=== PATIENT | female | born 1990 | race Caucasian/White ===

== ENCOUNTER 2018-11-22 20:43 | Inpatient (IN) | payer OTHER ==
[~2018-11-22 20:43] MED LIST: DINOPROSTONE 10 MG VAGINAL SUPPOSITORY VG ONE
[2018-11-22] MEDS ORDERED: DEXTROSE 5%-LACTATED RINGERS 1,000 ML IV SCH (20:45)
--- NOTE | 2018-11-22 22:50 | PN ---
Progress Note, Labor Vaginal Exam #1 Labor Exam Date: 11/22/18 Labor Exam Time: 22:25 Heart Rate (range): cat 1. Dilatation: 1-2 cm Effacement (%): 50 Amniotic Membrane Status: Intact Presentation: Vertex/Position Station: -1 (Primip, post term; for induction. All fully explained.) Remarks: Post term primip forf induction. EFW 8+ lbs. Some ctx; mild. All discussd fully. Cervidil placed.
[2018-11-22 23:59] VITALS: BMI 35.6
[2018-11-23 00:50] LABS: BASO % 0.8 % (0-2.0); HEMOGLOBIN 12.4 GM/dL (10.7-15.3)
[2018-11-23 00:53] LABS: EOS % 0.6 % (0-4.5); HEMATOCRIT 36.4 % (32.4-45.2); LYMPH % 20.8 % (8-40); MCH 27.3 pg (25.7-33.7); MEAN CELL VOLUME 80.2 fl (80-96); MEAN PLT VOLUME 12.2 fl (7.5-11.1); NEUT % 70.8 % (42.8-82.8); PLATELET COUNT 142 K/MM3 (134-434); RBC 4.54 M/mm3 (3.60-5.2); RDW 14.8 % (11.6-15.6); WHITE BLOOD COUNT 9.6 K/mm3 (4.0-10.0)
[2018-11-23 01:06] LABS: INR 0.92 (0.83-1.09); PROTHROMBIN TIME (PATIENT) 10.8 SEC (9.7-13.0)
[2018-11-23 01:09] LABS: ACTIVATED PTT 28.2 SECONDS (25.2-36.5)
[2018-11-23 01:13] LABS: BLOOD UREA NITROGEN 11.7 mg/dL (7-18); CALCIUM 8.6 mg/dL (8.5-10.1); CREATININE 0.8 mg/dL (0.55-1.3); POTASSIUM 3.9 mmol/L (3.5-5.1)
[2018-11-23] MEDS ORDERED: OXYTOCIN 30 UNITS in 0.9% NS 30 UNIT/500 ML INFUS.BAG IVPB ONE (06:47)
--- NOTE | 2018-11-23 07:03 | PN ---
Progress Note, Labor Vaginal Exam #2 Labor Exam Date: 11/23/18 Labor Exam Time: 06:35 Heart Rate (range): cat 1. Dilatation: 2-3 Effacement (%): 70 Amniotic Membrane Status: Intact Presentation: Vertex/Position Station: -2 (Pitocin started at 04:45 hrs. Comfortable, no ctx yet) Remarks: Pitocin started at 04:45 hrs. No ctx yet; comfortable. Making slow progress. Continue same Rx. AROM with next exam.
--- NOTE | 2018-11-23 07:14 | PN ---
Progress Note, Labor Vaginal Exam #2 Labor Exam Date: 11/23/18 Labor Exam Time: 07:10 Heart Rate (range): cat 1. Dilatation: 2-3 cm Effacement (%): 50 Amniotic Membrane Status: Intact Presentation: Vertex/Position Station: -2 Remarks: Terri. Uncomfortabele; coping well. D/W patient and family. AROM - clean. Allow labor to continue. Epidural soon; d/w patient. (DISREGARD PRIOR NOTE: ERROR. WRONG PATIENT ENTERED.)
[2018-11-23] MEDS ORDERED: FENTANYL/BUPIVACAINE/NS/PF - PCEA - 50 ML DISP.SYRIN EP ONE ×2 (09:32→14:51)
[2018-11-23] MEDS ORDERED: ELECTROLYTE-148 SOLN 1,000 ML IV SCH (09:45)
[2018-11-23] MEDS ORDERED: NALOXONE HCL 0.4 MG/ML VIAL IVPUSH PRN (11:20)
[2018-11-23] MEDS ORDERED: FENTANYL/BUPIVACAINE/NS/PF - PCEA - 50 ML DISP.SYRIN EP SCH ×2 (11:30)
--- NOTE | 2018-11-23 11:38 | HP ---
Past Medical History - Admission Chief Complaint: here for IOL History of Present Illness: 28 y/o P0 female with SIUP at 41 weeks (EDC 11/15/18 by [facility] ultrasound) presents for labor induction last night 11/22. Pt had cervidil placed last night which was removed approx 6am this morning. Since that time, pt was AROM'ed for clear fluid and is seabs without any additional intervention. Tolerating contractions at this time, but desires epidural. History Source: Patient, Medical Record - Past Medical History Cardiovascular: No: HTN Pulmonary: No: COPD Gastrointestinal: Yes: Other (gallstones, 2 episodes of gallstone pancreatitis this , most recenly at 37 weeks) Hepatobiliary: No: Other Renal/: No: UTI Reproductive: No: Ectopic , PID, Polycystic Ovary Syndrome ...: 1 ...Para: 0 ...Term: 0 ...: 0 ...Spon : 0 ...Induced : 0 ...Multiple Gestation: 0 ... Weeks Gestation by Dates: 22.5 ...EDC by Dates: 11/15/18 ...EDC by Sono: 11/15/18 Heme/Onc: No: Anemia Psych: No: Anxiety, Bipolar, Depression - Past Surgical History Past Surgical History: Yes: None Hx Myomectomy: No Hx Transabdominal Cerclage: No - Smoking History Smoking history: Never smoked - Alcohol/Substance Use Hx Alcohol Use: No - Social History History of Recent Travel: No Home Medications - Allergies Allergies/Adverse Reactions: Allergies Allergy/AdvReac Type Severity Reaction Status Date / Time Penicillins Allergy Verified 11/23/18 03:03 - Home Medications Home Medications: Ambulatory Orders Famotidine [Pepcid -] 20 mg PO BID 11/23/18 Vitamins (Sjr) - 1 tab PO DAILY 11/23/18 Review of Systems - Review of Systems Constitutional: reports: No Symptoms Eyes: reports: No Symptoms HENT: reports: No Symptoms Neck: reports: No Symptoms Cardiovascular: reports: No Symptoms Respiratory: reports: No Symptoms Gastrointestinal: reports: No Symptoms Genitourinary: reports: Other (contractions, leaking clear fluid) Integumentary: reports: No Symptoms Neurological: reports: No Symptoms Endocrine: reports: No Symptoms Hematology/Lymphatic: reports: No Symptoms Psychiatric: reports: No Symptoms Physical Exam - Maternity Vital Signs: Vital Signs Temperature 98.3 F 11/23/18 11:00 Pulse Rate 66 11/23/18 09:00 Respiratory Rate 20 11/23/18 09:00 Blood Pressure 128/76 11/23/18 09:00 O2 Sat by Pulse Oximetry (%) Constitutional: Yes: Well Nourished, Calm, Mild Distress (with contractions) Cardiovascular: Yes: Regular Rate and Rhythm - Abdominal Exam/OB Number of Fetuses: Single Presentation: Vertex Contractions: Yes Regularity: Regular Intensity: Mod/Strong Category: I Accelerations: Uniform Decelerations: None - Vaginal Exam/OB Vaginal Bleediing: No Dilatation (cm): 4.5 Effacement (%): 80 Amniotic Membrane Status: Ruptured Presentation: Vertex/Position Station: -1 - Physical Exam Psychiatric: Yes: Alert, Oriented - Labs Lab Results: CBC, BMP 11/23/18 00:30 11/23/18 00:30 Hemorrhage Risk Assessment - Risk Factors Medium Risk Factors: Yes: None High Risk Factors: Yes: None Risk Score: 1 Risk Level: Medium Risk Problem List - Problems (1) Post-dates Code(s): O48.0 - POST-TERM Assessment/Plan 28 y/o with SIUP at 41 weeks, for IOL s/p cervidil and AROM now in active labor to get epidural GBS negative continue active management
--- NOTE | 2018-11-23 14:22 | PN ---
Ante-Partal Exam - Subjective Subjective: Came to evaluate patient for early and variable decelerations. Vital Signs: Vital Signs Temperature 98.3 F 11/23/18 11:00 Pulse Rate 59 L 11/23/18 12:05 Respiratory Rate 20 11/23/18 12:05 Blood Pressure 109/73 11/23/18 12:05 O2 Sat by Pulse Oximetry (%) 100 11/23/18 12:05 Bleeding: Yes Bleeding Description: Mild Headache: No Visual changes: No Right upper quadrant pain: No - Contractions Contractions: Yes Regularity: Regular - Exam during Labor Heart Rate: 130 Variability: Moderate Category: I Monitor Accelerations: Present Monitor Decelerations: Early (and variable declerations) Exam: Vaginal Dilatation (cm): 6.5 Effacement (%): 100 Amniotic Membrane Status: Ruptured Nitrazine Test: Positive Presentation: Vertex Station: 0 - Assessment/Plan Assessment/Plan: 28 y/o with SIUP at 41 weeks, IOL for late term FHTS category 2, continue observation and resuscitative measures as needed if no progress and continues to have variables/decels may need to expedite delivery
--- NOTE | 2018-11-23 15:07 | PN ---
Ante-Partal Exam - Subjective Subjective: pt comfortable with epidural having recurrent variable decelerations with each contraction for the past 60 minutes Vital Signs: Vital Signs Temperature 97.9 F 11/23/18 14:00 Pulse Rate 59 L 11/23/18 12:05 Respiratory Rate 20 11/23/18 12:05 Blood Pressure 109/73 11/23/18 12:05 O2 Sat by Pulse Oximetry (%) 100 11/23/18 12:05 Bleeding: Yes Bleeding Description: Mild Headache: No Visual changes: No Right upper quadrant pain: No - Contractions Contractions: Yes Regularity: Irregular Intensity: Moderate - Exam during Labor Heart Rate: 135 Variability: Moderate Category: II Monitor Accelerations: Present (with scalp stimulation only) Monitor Decelerations: Variable Dilatation (cm): 6.5 Effacement (%): 90 Amniotic Membrane Status: Ruptured - Assessment/Plan Assessment/Plan: Discussed plan of care with patient. Recurrent variable decelerations and no progression with cervical dilation. Category 2 After observation and reassessment, continued category 2 tracing with recurrent decelerations and no cervical dilation progression, will plan for delivery R/b/A discussed with pt and family informed consent obtained anesthesia/nursery aware NPO/SCDs
[2018-11-23] MEDS ORDERED: CLINDAMYCIN 600MG PREMIX IVPB 600 MG/50 ML BAG IVPB ONE (15:12)
[2018-11-23] MEDS ORDERED: CITRIC ACID/SODIUM CITRATE 30 ML UNIT-DOSE CUP PO ONE (15:22)
[2018-11-23] MEDS ORDERED: GENTAMICIN 80 MG PREMIXED IVPB 80 MG/100 ML BAG IVPB ONE (15:22)
[2018-11-23] MEDS ORDERED: OXYTOCIN 20 UNITS in 0.9% NS 20 UNIT/1,000 ML INFUS.BAG IV ONE ×2 (15:48→17:46)
[2018-11-23] MEDS ORDERED: LIDO 2%/EPI 1:200000 PRESRVFRE (20 ML SDVIAL) ONE (15:49)
[2018-11-23] MEDS ORDERED: SODIUM BICARBONATE 8.4% - 50 ML ONE (15:51)
[2018-11-23] MEDS ORDERED: ceFAZolin SODIUM 1 GM VIAL ONE (15:58)
[2018-11-23] MEDS ORDERED: BUPIVACAINE 0.75% IN DEXTROSE/PF 2ML AMPULE NR ONE (16:02)
[2018-11-23] MEDS ORDERED: morphine SULFATE/PF 0.5 MG/ML (2cc Syringe - QUVA) ONE ×3 (16:06)
[2018-11-23] MEDS ORDERED: PHENYLEPHRINE HCL 10 MG/1 ML SINGLE DOSE VIAL ONE (16:17)
[2018-11-23] MEDS ORDERED: KETOROLAC TROMETHAMINE 30 MG/1 ML VIAL ONE (16:28)
[2018-11-23] MEDS ORDERED: OXYTOCIN 10 UNITS/ML VIAL ONE (16:36)
[2018-11-23] MEDS ORDERED: ONDANSETRON 4 MG/2 ML VIAL IVPUSH PRN (16:48)
[2018-11-23] MEDS ORDERED: DINOPROSTONE 10 MG VAGINAL SUPPOSITORY VG ONE (22:40)
--- NOTE | 2018-11-24 05:48 | OP ---
Operative Note - Note: Operative Date: 11/23/18 Pre-Operative Diagnosis: recurrent variable decelerations, remote from delivery Operation: primary LTCS Findings: normal b/l tubes and ovaries Post-Operative Diagnosis: Same as Pre-op Surgeon: Anita Snow Title Clerk Automobile: Panfilo Wade Anesthesiologist/APPRENTICE/LINEMAN: Stu Martel Anesthesia: Epidural Specimens Removed: placenta Estimated Blood Loss (mls): 600 Operative Report Dictated: Yes
--- NOTE | 2018-11-24 05:49 | PN ---
Post Progress Note - Subjective Subjective: Pt seen/evaluated, doing well. Complains of incisional pain, no other issues. Barboza catheter with good urine output. Tolerating clears. Type of Delivery: Primary C/S Vital Signs: Vital Signs Temperature 98.4 F 11/24/18 01:50 Pulse Rate 57 L 11/24/18 01:50 Respiratory Rate 18 11/24/18 05:00 Blood Pressure 111/65 11/24/18 01:50 O2 Sat by Pulse Oximetry (%) 100 11/23/18 15:35 Uterus: Yes: Fundus Firm Incision: Yes: Dressing dry and intact Abdomen/GI: Yes: Abdomen soft, Tolerating PO Lochia: Yes: Rubra Lochia, amount: Small Extremities: Yes: Calves non-tender, Edema (trace nonpitting LE edema b/l) Perineum: Yes: Intact Activity: Ambulating - Labs Labs: CBC WBC 9.6 K/mm3 (4.0-10.0) 11/23/18 00:30 RBC 4.54 M/mm3 (3.60-5.2) 11/23/18 00:30 Hgb 12.4 GM/dL (10.7-15.3) 11/23/18 00:30 Hct 36.4 % (32.4-45.2) 11/23/18 00:30 MCV 80.2 fl (80-96) 11/23/18 00:30 MCH 27.3 pg (25.7-33.7) 11/23/18 00:30 MCHC 34.0 g/dl (32.0-36.0) 11/23/18 00:30 RDW 14.8 % (11.6-15.6) 11/23/18 00:30 Plt Count 142 K/MM3 (134-434) 11/23/18 00:30 MPV 12.2 fl (7.5-11.1) H 11/23/18 00:30 Absolute Neuts (auto) 6.8 K/mm3 (1.5-8.0) 11/23/18 00:30 Neutrophils % 70.8 % (42.8-82.8) 11/23/18 00:30 Lymphocytes % 20.8 % (8-40) 11/23/18 00:30 Monocytes % 7.0 % (3.8-10.2) 11/23/18 00:30 Eosinophils % 0.6 % (0-4.5) 11/23/18 00:30 Basophils % 0.8 % (0-2.0) 11/23/18 00:30 Nucleated RBC % 0 % (0-0) 11/23/18 00:30 Problem List - Problems (1) Post-dates Code(s): O48.0 - POST-TERM (2) delivery delivered Code(s): O82 - ENCOUNTER FOR DELIVERY WITHOUT INDICATION Assessment/Plan 28 y/o POD#1 s/p primary LTCS for non reassuring heart rate AFVSS CBC pending advance diet as tolerated d/c gissel mckenzie a.m. routine post op care
[2018-11-24] MEDS: IBUPROFEN 600 MG TABLET (FP) PO PRN ×4 (08:15→20:56)
[2018-11-24] MEDS: ACETAMINOPHEN 325 MG TABLET (FP) PO PRN ×4 (08:16→20:55)
[2018-11-24] MEDS ORDERED: IBUPROFEN 800 MG/8 ML IJ IVPB PRN (08:21)
[2018-11-24] MEDS: ENOXAPARIN NA (PORCINE) 40 MG/0.4 ML DISP.SYRIN SQ SCH (10:00)
[2018-11-24] MEDS: PRENATAL VITAMINS W/ FOLIC ACID TABLET (FP) PO SCH (10:00)
[2018-11-24] MEDS ORDERED: DIPHTH,PERTUSS(ACELL),TET 0.5 ML DISP.SYRIN IM ONE (10:00)
--- NOTE | 2018-11-24 10:44 | PN ---
Progress Note (short form) - Note Progress Note: Post op day#1.S/p C Section under epidural anesthesia with duramorph uneventful.Patient stable and c/o little pain for which she is on medication.No any anesthesia related problem.Patient Dc from the anesthesia care.
[2018-11-24 11:16] LABS: HEMATOCRIT 32.8 % (32.4-45.2); MCH 27.1 pg (25.7-33.7); MCHC 33.4 g/dl (32.0-36.0); MEAN PLT VOLUME 11.5 fl (7.5-11.1); PLATELET COUNT 91 K/MM3 (134-434); RBC 4.05 M/mm3 (3.60-5.2); RDW 14.8 % (11.6-15.6); WHITE BLOOD COUNT 9.1 K/mm3 (4.0-10.0)
[2018-11-24] MEDS: oxyCODONE HCL 5 MG TABLET PO PRN (23:12)
--- NOTE | 2018-11-25 07:23 | PN ---
Post Progress Note - Subjective Subjective: 28 y0 Para 1 status post delivery, seen and evaluated. Doing well. Post Day: 2 Type of Delivery: Primary C/S Vital Signs: Vital Signs Temperature 98.3 F 11/24/18 22:00 Pulse Rate 70 11/24/18 22:00 Respiratory Rate 18 11/24/18 22:00 Blood Pressure 120/76 11/24/18 22:00 O2 Sat by Pulse Oximetry (%) 100 11/23/18 15:35 Breast Exam: Yes: Soft Uterus: Yes: Fundus Firm Incision: Yes: Dressing dry and intact Abdomen/GI: Yes: Abdomen soft, Tolerating PO Lochia: Yes: Rubra Lochia, amount: Small Extremities: Yes: Calves non-tender Perineum: Yes: Intact Activity: Ambulating - Labs Labs: CBC WBC 9.1 K/mm3 (4.0-10.0) 11/24/18 10:45 RBC 4.05 M/mm3 (3.60-5.2) 11/24/18 10:45 Hgb 11.0 GM/dL (10.7-15.3) 11/24/18 10:45 Hct 32.8 % (32.4-45.2) 11/24/18 10:45 MCV 81.0 fl (80-96) 11/24/18 10:45 MCH 27.1 pg (25.7-33.7) 11/24/18 10:45 MCHC 33.4 g/dl (32.0-36.0) 11/24/18 10:45 RDW 14.8 % (11.6-15.6) 11/24/18 10:45 Plt Count 91 K/MM3 (134-434) L D 11/24/18 10:45 MPV 11.5 fl (7.5-11.1) H 11/24/18 10:45 Absolute Neuts (auto) 6.8 K/mm3 (1.5-8.0) 11/23/18 00:30 Neutrophils % 70.8 % (42.8-82.8) 11/23/18 00:30 Lymphocytes % 20.8 % (8-40) 11/23/18 00:30 Monocytes % 7.0 % (3.8-10.2) 11/23/18 00:30 Eosinophils % 0.6 % (0-4.5) 11/23/18 00:30 Basophils % 0.8 % (0-2.0) 11/23/18 00:30 Nucleated RBC % 0 % (0-0) 11/23/18 00:30 Assessment/Plan Status post primary Ambulation Analgesia as needed Continue routine post op care
[2018-11-25] MEDS: PRENATAL VITAMINS W/ FOLIC ACID TABLET (FP) PO SCH (09:20)
[2018-11-25] MEDS: IBUPROFEN 600 MG TABLET (FP) PO PRN ×4 (09:20→22:05)
[2018-11-25] MEDS: oxyCODONE HCL 5 MG TABLET PO PRN ×4 (09:21→22:05)
[2018-11-25] MEDS: ENOXAPARIN NA (PORCINE) 40 MG/0.4 ML DISP.SYRIN SQ SCH (09:22)
[2018-11-26] MEDS: IBUPROFEN 600 MG TABLET (FP) PO PRN ×4 (07:19→21:07)
[2018-11-26] MEDS: ACETAMINOPHEN 325 MG TABLET (FP) PO PRN ×4 (07:20→21:07)
--- NOTE | 2018-11-26 08:31 | PN ---
Post Note - Post Date of Delivery: 11/23/18 Post Day: 3 Vital Signs: Vital Signs - 24 hr 11/25/18 11/25/18 11/26/18 10:00 22:00 07:20 Temperature 98.6 F 98.6 F 98.6 F Pulse Rate 70 56 L 54 L Respiratory 18 18 18 Rate Blood Pressure 111/78 122/65 134/61 - Subjective Subjective: No Complaints - Objective Afebrile: Yes Breast: Not engorged Abdomen: Soft, Non-tender, Other Uterus: Fundus firm Vagina: Scant lochia Extremities: Non-tender - Assessment/Plan (1) delivery delivered Assessment: Other (POD 3 SP CS) Plan: Routine Care, Other (DC Home in AM) Comment: incision
[2018-11-26] MEDS: PRENATAL VITAMINS W/ FOLIC ACID TABLET (FP) PO SCH (09:24)
[2018-11-26] MEDS: ENOXAPARIN NA (PORCINE) 40 MG/0.4 ML DISP.SYRIN SQ SCH (09:24)
[2018-11-26 14:36] LABS: BASO % 0.5 % (0-2.0); EOS % 1.4 % (0-4.5); HEMATOCRIT 29.9 % (32.4-45.2); HEMOGLOBIN 10.2 GM/dL (10.7-15.3); LYMPH % 14.5 % (8-40); MCH 27.5 pg (25.7-33.7); MCHC 34.1 g/dl (32.0-36.0); MEAN CELL VOLUME 80.8 fl (80-96); MEAN PLT VOLUME 10.5 fl (7.5-11.1); MONO % 5.2 % (3.8-10.2); NEUT % 78.4 % (42.8-82.8); RDW 14.8 % (11.6-15.6); WHITE BLOOD COUNT 8.1 K/mm3 (4.0-10.0)
[2018-11-26 14:49] LABS: PLATELET COUNT 144 K/MM3 (134-434)
[2018-11-26] MEDS: SIMETHICONE 80 MG TAB.CHEW (FP) PO PRN ×2 (16:53→21:07)
[2018-11-27] MEDS: ACETAMINOPHEN 325 MG TABLET (FP) PO PRN ×4 (00:54→22:58)
[2018-11-27] MEDS: SIMETHICONE 80 MG TAB.CHEW (FP) PO PRN ×4 (00:54→22:58)
[2018-11-27] MEDS: IBUPROFEN 600 MG TABLET (FP) PO PRN ×4 (00:55→23:01)
--- NOTE | 2018-11-27 04:01 | HOSP ---
Subjective - Review of Symptoms Events since last encounter: 28 y0 Para 1 status post delivery, seen and evaluated at bedside for abnormal EKG sinsus bradycardia, cannot rule out Anterior infarct. Repeat EKG: marked sinus bradycardia with some arrhythmia, cannot rule anterior infarct Upon exam patient is no acute distress, denies sob/cp, no numbness,tingling,or dizziness noted. No sign of acute bleeding Continue with current plan of care monitor closely, if noted with acute symptoms re-consult General: No: Chills, Night Sweats, Fatigue, Malaise, Appetite, Other HEENT: No: Head Aches, Visual Changes, Eye Pain, Ear Pain, Dysphasia, Sinus Congestion, Post Nasal Drip, Sore Throat, Other Pulmonary: No: Dyspnea, Cough, Pleuritic Chest Pain, Other Cardiovascular: No: Chest Pain, Palpitations, Orthopnea, Paroxysmal Noc. Dyspnea , Edema, Light Headedness, Other Gastrointestinal: No: Nausea, NOSYM, Vomiting, Abdominal Pain, Diarrhea, Constipation, Melena, Hematochezia, Other Musculoskeletal: No: No Symptoms, Back Pain, Crepitus, Decreased ROM, Extremity Pain, Joint Pain, Joint Swelling, Muscle Pain, Muscle Cramps, Muscle Weakness, Other Neurological: No: Weakness, Numbness, Incoordination, Change in speech, Confusion, Seizures, Other Physical Examination Vital Signs: Vital Signs Temperature 98.3 F 11/26/18 20:55 Pulse Rate 46 L 11/27/18 02:00 Respiratory Rate 20 11/27/18 02:00 Blood Pressure 126/80 11/27/18 02:00 O2 Sat by Pulse Oximetry (%) 100 11/23/18 15:35 Constitutional: Yes: No Distress Eyes: Yes: Conjunctiva Clear, EOM Intact HENT: Yes: Atraumatic, Normocephalic Neck: Yes: Supple, Trachea Midline Cardiovascular: Yes: WNL, Bradycardia Respiratory: Yes: WNL, Regular Gastrointestinal: Yes: WNL, Normal Bowel Sounds, Soft Labs: CBC, BMP 11/26/18 14:12 11/23/18 00:30
--- NOTE | 2018-11-27 08:03 | CONSULT ---
Consultation: REQUESTING PROVIDER: OBGYN CONSULT REQUEST: We have been asked to medically evaluate this patient for chest pain HISTORY OF PRESENT ILLNESS: Since seen by REVIEW TRAINER last night, no further calls to medicine service. Found afebrile and hemodynamically stable. Bradycardia with chronotropic response argues against PE; D-dimer likely positive. Euvolemic. Echo pending along with cardiac consultation. REVIEW OF SYSTEMS: 10 sys ROS done and negative aside from HPI PHYSICAL EXAMINATION Vital Signs - 24 hr 11/26/18 11/26/18 11/27/18 20:55 21:10 02:00 Temperature 98.3 F Pulse Rate 44 L 60 46 L Respiratory 20 20 Rate Blood Pressure 136/76 126/80 GENERAL: Awake, alert, and fully oriented, in no acute distress. HEAD: Normal with no signs of trauma. EYES: Pupils equal, round and reactive to light EARS, NOSE, THROAT: Ears normal, nares patent NECK: Normal range of motion, supple without lymphadenopathy, JVD, or masses. LUNGS: Breath sounds equal, clear to auscultation bilaterally. HEART: Regular rate and rhythm, normal S1 and S2 without murmur, rub or gallop. ABDOMEN: Soft, nontender, not distended, normoactive bowel sounds, MUSCULOSKELETAL: Normal range of motion at all joints. NEUROLOGICAL: Cranial nerves II-XII intact. Normal speech. Normal gait. PSYCHIATRIC: Cooperative. Good eye contact. Appropriate mood and affect. SKIN: Warm, dry, normal turgor, no rashes or lesions noted. Laboratory Results - last 24 hr 11/26/18 14:12 WBC 8.1 RBC 3.70 Hgb 10.2 L Hct 29.9 L MCV 80.8 MCH 27.5 MCHC 34.1 RDW 14.8 Plt Count 144 D MPV 10.5 Absolute Neuts (auto) 6.3 Neutrophils % 78.4 Lymphocytes % 14.5 D Monocytes % 5.2 Eosinophils % 1.4 D Basophils % 0.5 Nucleated RBC % 0 Active Medications Generic Name Dose Route Start Last Admin Trade Name Freq PRN Reason Stop Dose Admin Acetaminophen 650 mg 11/23/18 16:48 11/27/18 00:54 Tylenol - PO 650 mg Q4H PRN Administration PAIN LEVEL 4 - 6 Diphenhydramine HCl 25 mg 11/23/18 16:48 11/23/18 23:36 Benadryl Injection - IVPUSH 25 mg Q4H PRN Administration Pruritis Enoxaparin Sodium 40 mg 11/24/18 10:00 11/26/18 09:24 Lovenox - SQ 40 mg DAILY JONATHAN Administration Ibuprofen 600 mg 11/23/18 16:48 11/27/18 00:55 Motrin - PO 600 mg Q4H PRN Administration PAIN LEVEL 1-5 Ibuprofen 800 mg 11/24/18 08:21 Caldolor Injection - IVPB Q6H PRN FEVER Naloxone HCl 0.4 mg 11/23/18 11:20 Narcan - IVPUSH PRN PRN Sedation Ondansetron HCl 4 mg 11/23/18 16:48 Zofran Injection IVPUSH Q4H PRN NAUSEA Oxycodone HCl 5 mg 11/24/18 12:21 11/25/18 18:50 Roxicodone - PO 5 mg Q4H PRN Administration PAIN SCALE =/<5 Oxycodone HCl 10 mg 11/24/18 12:22 11/25/18 22:05 Roxicodone - PO 10 mg Q4H PRN Administration PAIN SCALE < 5 Multivit/Folic Acid/Iron 1 tab 11/24/18 10:00 11/26/18 09:24 Vitamins (Sjr) - PO 1 tab DAILY JONATHAN Administration Simethicone 80 mg 11/26/18 13:31 11/27/18 00:54 Mylicon - PO 80 mg Q4H PRN Administration EXCESSIVE BLEEDING ASSESSMENT/PLAN: Patient presented to the medicine provider overnight for atypical chest pain that she states is more in her throat; she has no current SOB, CP, or progressive EKG changes. She is hemodynamically stable. She has bradycardia that had a chronotropic response from 44-59 [address] when ambulating 15 feet and she did not have any symptoms at that point. No hypotension or syncopal sx during this hospitaliation. She does note that she has had similar pain in her stomach that she is having now with no radiation (chest/throat pain improved) before. This is apparently the same pain she had with her GB; she saw a surgeon through an ER at an OSH and he stated that he did not wish to operate at that time (when she was ) but encouraged her to followup after the . She has not made any appointments with said group and was lost to followup. Thereforem # Sinus bradycardia -in an otherwise healthy 28 y/o; she has no hypotension, good chronotropic response, and is asx. Low HR could be normal finding in young people. Will monitor and followup CV recs. # Atypical CP -Resolved; negative EKG, noted no trop from overnight so checking now. Much less likely ACS given age and risks as well as prior known GB issues. # Biliary Colic -Checking US; if positive consider surgical consult Dispo: We will continue to follow the patient. Thank you for this consultative opportunity. Visit type - Emergency Visit Emergency Visit: No - New Patient This patient is new to me today: Yes Date on this admission: 12/24/18 - Critical Care Critical Care patient: No
[2018-11-27] MEDS: PRENATAL VITAMINS W/ FOLIC ACID TABLET (FP) PO SCH (09:36)
[2018-11-27] MEDS: ENOXAPARIN NA (PORCINE) 40 MG/0.4 ML DISP.SYRIN SQ SCH (09:36)
--- NOTE | 2018-11-27 09:56 | OP ---
DATE OF OPERATION: 11/23/2018 PREOPERATIVE DIAGNOSIS: Intrauterine at 41 weeks' gestation, induction of labor, recurrent variable decelerations remote from delivery. POSTOPERATIVE DIAGNOSIS: Intrauterine at 41 weeks' gestation, induction of labor, recurrent variable decelerations remote from delivery. PROCEDURE PERFORMED: Primary low transverse section. SURGEON: Anita Snow DO COMMUNICATION INSTRUCTOR: LUIS MANUEL Gupta ANESTHESIA: Epidural initially inserted by Dr. Angela Garrido; bolused and maintained by Dr. Stu Martel. SPECIMENS REMOVED: The placenta. ESTIMATED BLOOD LOSS: 600 mL. COMPLICATIONS: None. FINDINGS: Nuchal cord x1. Baby in OP position. COUNTS: Sponge, needle and instrument counts were correct. DISPOSITION: Stable to PACU. BRIEF HISTORY: The patient is a 28-year-old who was admitted to [facility] for induction of labor secondary to late term at 41 weeks' gestation. The patient underwent a Cervidil induction on the evening of November 22, 2018. Then the morning of November 23, 2018, she was sebas regularly on her own. Her membranes were artificially ruptured. The patient continued to have spontaneous labor and contractions, without any additional medication or intervention. Throughout the morning of November 23, 2018, the patient started to have variable decelerations. Initially they were not recurrent. The patient's cervical exam continued to advanace in dilation. On the afternoon of November 23, 2018, the patient began having recurrent variable decelerations on the heart rate tracing and cervical exam was not progressing spontaneously on its own. At this point the plan was discussed with the patient. The plan was made for a section. The patient agreed with the plan. Informed consent was obtained. DESCRIPTION OF PROCEDURE: She was taken back to the operating room, where the epidural anesthesia which had been previously placed was bolused. She was placed in the dorsal supine position on the operating room table. She had already had a Barboza catheter in place. She was prepped and draped in the usual sterile fashion. A hard time-out was performed. A Pfannenstiel skin incision was created in the skin using a scalpel and carried to the underlying layer of rectus fascia sharply. The fascia was incised on either side of the midline sharply, and the fascial incision was extended in a superolateral direction. The fascia was tented upward and dissected off the underlying layer of rectus muscle. The musculature was identified in the midline. The muscles were laterally, and the peritoneum was entered bluntly to allow for adequate room for delivery. A bladder blade was inserted. A low transverse incision was created in the lower uterine segment, which was extended in a superolateral direction bluntly. The infant was then delivered from the direct OP position. After delivery of the head, a nuchal cord was noted, which was reduced at this time, and the remainder of the infant delivered with ease. The cord was clamped twice and cut in between. The was taken over to the neonatology staff, where scores of 9 and 9 were assigned. The placenta was delivered intact, with a 3-vessel cord. The uterus was exteriorized and cleared of all amniotic membranes and blood clots with a dry lap sponge. The hysterotomy was reapproximated using a double-layer closure, first using 1 Vicryl suture in a running locked fashion and the second layer using 0 Biosyn in a running fashion. The bilateral tube and ovaries were noted to be normal. The hysterotomy was noted to be hemostatic. The posterior cul-de-sac was then suctioned. The uterus was placed back into the abdomen. Bilateral gutters were cleared of all blood clot and debris. The hysterotomy again was reexamined and noted to be hemostatic. The peritoneum was reapproximated using 2-0 chromic in a running fashion. The musculature was reapproximated in a single suture using 0 Biosyn. The fascia was reapproximated using 1 Vicryl in a running fashion. The subcutaneous tissue was irrigated and reapproximated using 1 Vicryl in a running fashion. The skin was reapproximated in a subcuticular fashion using 3-0 Vicryl. Steri-Strips were applied. The patient tolerated the procedure well, and is recovering in stable condition in the recovery room after the procedure. Sponge, needle and instrument count was reported to be correct. ANITA SNOW DO /[id number]
--- NOTE | 2018-11-27 11:29 | CON.CARD ---
Consult Consult Specialty:: Cardiology Referred by:: Anita Snow Reason for Consultation:: Bradycardia - History of Present Illness Chief Complaint: Abdominal pain History of Present Illness: 28 year old female with no significant pmhx admitted for induction of and s/p C section on 11/23/18 with no complications noted. Some mild lower abdominal pain. Otherwise feels well with no chest pain or sob. No new LE edema. No palpitations, dizziness, or near syncope. Ambulating with no complaints. HR noted to be sinus upper 30s on ekg with no acute st changes. Comfortable sitting in a chair during exam. Report as per chart HR went to 59 with short walk in the hallway. No hypotension No bug/tick bites noted No thyroid history. - History Source History Provided By: Patient, Medical Record - Past Medical History Cardio/Vascular: No: HTN Pulmonary: No: COPD Gastrointestinal: Yes: Other (gallstones, 2 episodes of gallstone pancreatitis this , most recenly at 37 weeks) Hepatobiliary: No: Other Renal/: No: UTI Psych: No: Anxiety, Bipolar, Depression - Past Surgical History Past Surgical History: Yes: None - Alcohol/Substance Use Hx Alcohol Use: No - Smoking History Smoking history: Never smoked - Social History History of Recent Travel: No Home Medications - Allergies Allergies/Adverse Reactions: Allergies Allergy/AdvReac Type Severity Reaction Status Date / Time Penicillins Allergy Verified 11/23/18 03:03 - Home Medications Home Medications: Ambulatory Orders Famotidine [Pepcid -] 20 mg PO BID 11/23/18 Vitamins (Sjr) - 1 tab PO DAILY 11/23/18 Ibuprofen [Motrin -] 600 mg PO QID #28 tablet 11/27/18 Vital Signs: Vital Signs Temperature 98.4 F 11/27/18 08:10 Pulse Rate 39 L 11/27/18 08:10 Respiratory Rate 18 11/27/18 08:10 Blood Pressure 153/79 11/27/18 08:10 O2 Sat by Pulse Oximetry (%) 100 11/23/18 15:35 Constitutional: Yes: No Distress Neck: Yes: Supple Respiratory: Yes: CTA Bilaterally Gastrointestinal: Yes: Soft Cardiovascular: Yes: Bradycardia JVD: No Carotid Bruit: No Heart Sounds: Yes: S1, S2 Murmur: No: Systolic Murmur - Other Data Labs, Other Data: CBC, BMP 11/26/18 14:12 11/23/18 00:30 INR, PTT INR 0.92 (0.83-1.09) 11/23/18 00:30 Imaging - Results EKG: Image Reviewed Assessment/Plan 28 year old female with no significant pmhx admitted for induction of and s/p C section on 11/23/18 with no complications noted. Some mild lower abdominal pain. Otherwise feels well with no chest pain or sob. No new LE edema. No palpitations, dizziness, or near syncope. Ambulating with no complaints. HR noted to be sinus upper 30s on ekg with no acute st changes. Comfortable sitting in a chair during exam. Report as per chart HR went to 59 with short walk in the hallway. No hypotension No bug/tick bites noted No thyroid history. 1) Bradycardia Unlikely any acute cardiac process. No st changes. No chest pain, sob, or chf symptoms on exam. Asymptomatic from HR and BP is normal. No complaints with walking. Would check an echocardiogram Lytes wnl on 11/23/18 but would recheck. Check tft's if not done recently.
[2018-11-27 15:57] LABS: ALBUMIN 2.5 g/dl (3.4-5.0); BILIRUBIN,TOTAL 0.3 mg/dL (0.2-1); BLOOD UREA NITROGEN 9.5 mg/dL (7-18); CALCIUM 8.9 mg/dL (8.5-10.1); CREATININE 0.7 mg/dL (0.55-1.3); MAGNESIUM 1.9 mg/dL (1.8-2.4); POTASSIUM 4.2 mmol/L (3.5-5.1); TOT PROT 6.2 g/dl (6.4-8.2)
--- NOTE | 2018-11-27 16:02 | HOSP ---
Physical Examination Vital Signs: Vital Signs Temperature 98.4 F 11/27/18 08:10 Pulse Rate 51 L 11/27/18 13:15 Respiratory Rate 18 11/27/18 13:15 Blood Pressure 127/79 11/27/18 13:15 O2 Sat by Pulse Oximetry (%) 100 11/23/18 15:35 Labs: CBC, BMP 11/26/18 14:12 11/27/18 14:45 Hospitalist Encounter Assessment: Cardiology notes reviewed Patient is pending echocardiogram CMP ordered to monitor electrolytes TSH/Free t 4 pending pending abdominal ultrasound
[2018-11-27 23:25] VITALS: PULSE 51
--- NOTE | 2018-11-28 07:02 | PN ---
Progress Note (SOAP) - Subjective Chief Complaint: Pt SP bradycardia in 30s. WOrked up by cardiology pt asymptomatic no bleeding no dizzyness - Current Medications Current Medications: Active Medications Acetaminophen (Tylenol -) 650 mg PO Q4H PRN PRN Reason: PAIN LEVEL 4 - 6 Last Admin: 11/27/18 22:58 Dose: 650 mg Diphenhydramine HCl (Benadryl Injection -) 25 mg IVPUSH Q4H PRN PRN Reason: Pruritis Last Admin: 11/23/18 23:36 Dose: 25 mg Enoxaparin Sodium (Lovenox -) 40 mg SQ DAILY [facility] Last Admin: 11/27/18 09:36 Dose: 40 mg Ibuprofen (Motrin -) 600 mg PO Q4H PRN PRN Reason: PAIN LEVEL 1-5 Last Admin: 11/27/18 23:01 Dose: 600 mg Ibuprofen (Caldolor Injection -) 800 mg IVPB Q6H PRN PRN Reason: FEVER Naloxone HCl (Narcan -) 0.4 mg IVPUSH PRN PRN PRN Reason: Sedation Ondansetron HCl (Zofran Injection) 4 mg IVPUSH Q4H PRN PRN Reason: NAUSEA Multivit/Folic Acid/Iron ( Vitamins (Sjr) -) 1 tab PO DAILY [facility] Last Admin: 11/27/18 09:36 Dose: 1 tab Simethicone (Mylicon -) 80 mg PO Q4H PRN PRN Reason: EXCESSIVE BLEEDING Last Admin: 11/27/18 22:58 Dose: 80 mg - Objective Vital Signs: Vital Signs Temperature 98.9 F 11/27/18 22:00 Pulse Rate 51 L 11/27/18 22:00 Respiratory Rate 18 11/27/18 22:00 Blood Pressure 127/83 11/27/18 22:00 O2 Sat by Pulse Oximetry (%) 100 11/23/18 15:35 Constitutional: Yes: Well Nourished, No Distress Neck: Yes: WNL Gastrointestinal: Yes: WNL, Soft, Abdomen, Obese Breast(s): Yes: WNL Musculoskeletal: Yes: WNL Extremities: Yes: WNL Peripheral Pulses WNL: No Edema: No Wound/Incision: Yes: Clean/Dry, Well Approximated, Steri Strips, Open to air Neurological: Yes: WNL, Alert, Oriented Labs Lab Results: CBC, BMP 11/26/18 14:12 11/27/18 14:45 Problem List - Problems (1) delivery delivered Code(s): O82 - ENCOUNTER FOR DELIVERY WITHOUT INDICATION (2) Bradycardia with 31-40 beats per minute Code(s): R00.1 - BRADYCARDIA, UNSPECIFIED Assessment/Plan SP Medicine appreciated SP Cardiology consult POD3 Plan DC home when stable cotinue present management ECHo - Oupatient?
--- NOTE | 2018-11-28 07:07 | DS ---
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 Vital Signs: Vital Signs Temperature 98.9 F 11/27/18 22:00 Pulse Rate 51 L 11/27/18 22:00 Respiratory Rate 18 11/27/18 22:00 Blood Pressure 127/83 11/27/18 22:00 O2 Sat by Pulse Oximetry (%) 100 11/23/18 15:35 Constitutional: Yes: Well Nourished, No Distress Respiratory: Yes: WNL Gastrointestinal: Yes: WNL ....Post : Yes: Uterus firm, Uterus non-tender Breast(s): Yes: WNL Musculoskeletal: Yes: WNL Wound/Incision: Yes: Clean/Dry, Steri Strips Neurological: Yes: WNL, Alert, Oriented Psychiatric: Yes: WNL, Alert, Oriented Labs: CBC, BMP 11/26/18 14:12 11/27/18 14:45 Delivery - Delivery Section: Low Flap Transverse Type of Anesthesia: Epidural Episiotomy/Laceration: None EBL (cc): 500 Delivery, Single - Stages of Labor Date 1st Stage Initiatied: 11/23/18 Time 1st Stage Initiated: 05:00 Date of Delivery: 11/23/18 Time of Delivery: 16:07 Time Placenta Delivered: 16:09 - Condition of Infant Picker Packer/Wireline Supervisor Present: Yes Name: Paulina Finch Gender: Male Weight: 7 lb 13 oz Position: OP Total Hours ROM (Hrs/Mins): 8 hrs 54 min - 1 Minute Total Score: 9 5 Minutes Total Score: 9 - Feeding Plan Initial Plan: Elected not to breastfeed exclusively throughout hospitalization Discharge Summary Reason For Visit: ADMIT LABOR Current Active Problems Bradycardia with 31-40 beats per minute (Acute) delivery delivered (Acute) Post-dates (Acute) Condition: Good - Instructions Diet, Activity, Other Instructions: Physical activity Resume your normal everyday activity as tolerated no heavy lifting or exercise until seen by your surgeon. You may walk unlimited guzman of and climb stairs. You may resume driving the car when you feel safe and comfortable behind the wheel. No sexual activity as instructed. Wound care If you have a bandage, leave it on, and keep dry for 48-72 hours. After that time discard the outer bandage. If they are tapes on the skin under the out of bandage leave them in place. They will peel off in the next 7 to 10 days. Do Not Peel them off. You may shower the day after surgery. If there are tapes present on the skin, you may shower over them. Diet There are no dietary restrictions. Eat healthy, high-fiber foods. Drink 6 to 8 glasses of liquid each day. This will assist in keeping your bowels are regular. Pain management You may take Tylenol or acetaminophen or Ibuprofen (for example, Motrin, Advil etc.) from my pain prescription medication is ordered should be taken as prescribed for moderate to severe pain. Call MD for any of the following: Severe pain not relieved by medication Fever of 101 or higher Excessive bleeding or drainage on dressing Inability to urinate Disposition: HOME - Home Medications Comprehensive Discharge Medication List: Ambulatory Orders Famotidine [Pepcid -] 20 mg PO BID 11/23/18 Vitamins (Sjr) - 1 tab PO DAILY 11/23/18 Ibuprofen [Motrin -] 600 mg PO QID #28 tablet 11/27/18
[2018-11-28] MEDS: ACETAMINOPHEN 325 MG TABLET (FP) PO PRN (08:02)
[2018-11-28] MEDS: IBUPROFEN 600 MG TABLET (FP) PO PRN (08:03)
--- NOTE | 2018-11-28 08:52 | PN ---
Progress Note (short form) - Note Progress Note: Patient to be transferred to service and be followed by Dr Bardales.
[2018-11-28 09:01] VITALS: BP 131/86; TEMP 99
[2018-11-28] MEDS: ENOXAPARIN NA (PORCINE) 40 MG/0.4 ML DISP.SYRIN SQ SCH (09:05)
[2018-11-28] MEDS: PRENATAL VITAMINS W/ FOLIC ACID TABLET (FP) PO SCH (09:05)
--- NOTE | 2018-11-28 13:49 | ECHO ---
Name: MAXI RODRIGUEZ Exam:Adult Echocardiogram Study Date: 11/28/2018 09:42 AM Age: 28 yrs Reason For Study: valve issues r/o r-sided strain Height: 66 in Weight: 221 lb BSA: 2.1 m2 MMode/2D Measurements & Calculations IVSd: 0.81 cm Ao root diam: 3.0 cm LVIDd: 4.8 cm LA dimension: 3.1 cm LVIDs: 3.2 cm LVPWd: 0.96 cm LVPWs: 1.6 cm EDV(Teich): 108.8 ml ESV(Teich): 39.5 ml LVOT diam: 2.0 cm RV S Marcellus: 14.9 cm/sec Doppler Measurements & Calculations MV E max marcellus: 101.7 cm/sec Ao V2 max: 139.7 cm/sec MV A max marcellus: 73.1 cm/sec Ao max P.8 mmHg MV E/A: 1.4 Ao V2 mean: 97.9 cm/sec MV dec time: 0.20 sec Ao mean P.3 mmHg Ao V2 VTI: 34.5 cm CECILIO(I,D): 2.4 cm2 CECILIO(V,D): 2.4 cm2 LV V1 max P.5 mmHg SV(LVOT): 82.3 ml LV V1 mean P.2 mmHg LV V1 max: 105.6 cm/sec LV V1 mean: 69.6 cm/sec LV V1 VTI: 25.5 cm TR max marcellus: 262.8 cm/sec PA V2 max: 103.8 cm/sec TR max P.0 mmHg PA max P.3 mmHg RVSP(TR): 38.0 mmHg Med Peak E' Marcellus: 9.6 cm/sec RAP systole: 10.0 mmHg Med E/e': 10.6 Lat Peak E' Marcellus: 14.0 cm/sec Lat E/e': 7.2 Procedure A complete two-dimensional transthoracic echocardiogram was performed (2D, M-mode, Doppler and color flow Doppler). Left Ventricle The left ventricle is normal in size. Left ventricular systolic function is normal. Ejection Fraction = 60- 65%. No regional wall motion abnormalities noted. Right Ventricle The right ventricle is not well visualized. RV systolic TDI is mesured 15 cm/s suggestive of normal R V systolic function. Atria The left atrial size is normal. Right atrial size is normal. Mitral Valve The mitral valve is normal in structure and function. There is mild mitral regurgitation. Tricuspid Valve The tricuspid valve is normal in structure and function. There is mild to moderate tricuspid regurgit ation. Pulmonary artery systolic pressure is at least 38 mmHg assuming RA pressure of 3 mmHg. Aortic Valve The aortic valve is normal in structure and function. No aortic regurgitation is present. Pulmonic Valve The pulmonic valve is not well visualized. Mild pulmonic valvular regurgitation. Great Vessels The aortic root is normal size. Pericardium/Pleura There is no pericardial effusion. Interpretation Summary The left ventricle is normal in size. Left ventricular systolic function is normal. No regional wall motion abnormalities noted. Ejection Fraction = 60-65%. The right ventricle is not well visualized. RV systolic TDI is mesured 15 cm/s suggestive of normal RV systolic function The left atrial size is normal. Right atrial size is normal. There is mild mitral regurgitation. There is mild to moderate tricuspid regurgitation. Pulmonary artery systolic pressure is at least 38 mmHg assuming RA pressure of 3 mmHg Mild pulmonic valvular regurgitation. There is no pericardial effusion. Previous study is not available for comparison Alfredo Doherty MD 11/28/2018 01:48 PM
--- NOTE | 2018-11-28 14:26 | CON.GI ---
Consult Consult Specialty:: Gastroenterology Referred by:: Dr. Snow - History of Present Illness Chief Complaint: Gallstones History of Present Illness: 28yo female presenting for labor induction s/p C section on 11/23/18 asked to evaluate for gallstones. Pt feeling well, states she has known gallstones with intermittent abdominal pain during and episode of gallstone pancreatitis in 09/2016 at [facility]. Advised outpatient surgery follow up for elective cholecystectomy post delivery. Pt noted to be bradycardic undergoing cardiology evaluation and also had reported lower abdominal pain post C section. Abd US revealing contracted gallbladder with gallstones and no biliary dilation. Currently feeling well, reports mild lower abdominal discomfort, otherwise denies RUQ pain, n/v or fever /chills. Moving bowels. - History Source History Provided By: Patient - Past Medical History Cardio/Vascular: No: HTN Pulmonary: No: COPD Gastrointestinal: Yes: Other (gallstones, 2 episodes of gallstone pancreatitis this , most recenly at 37 weeks) Hepatobiliary: No: Other Renal/: No: UTI Psych: No: Anxiety, Bipolar, Depression - Past Surgical History Past Surgical History: Yes: None - Alcohol/Substance Use Hx Alcohol Use: No - Smoking History Smoking history: Never smoked - Social History History of Recent Travel: No Home Medications - Allergies Allergies/Adverse Reactions: Allergies Allergy/AdvReac Type Severity Reaction Status Date / Time Penicillins Allergy Verified 11/23/18 03:03 - Home Medications Home Medications: Ambulatory Orders Famotidine [Pepcid -] 20 mg PO BID 11/23/18 Vitamins (Sjr) - 1 tab PO DAILY 11/23/18 Ibuprofen [Motrin -] 600 mg PO QID #28 tablet 11/27/18 Review of Systems - Review of Systems Constitutional: reports: No Symptoms Cardiovascular: reports: No Symptoms Respiratory: reports: No Symptoms Gastrointestinal: reports: No Symptoms Physical Exam-GI Vital Signs: Vital Signs Temperature 99 F 11/28/18 09:00 Pulse Rate 51 L 11/28/18 09:00 Respiratory Rate 18 11/28/18 09:00 Blood Pressure 131/86 11/28/18 09:00 O2 Sat by Pulse Oximetry (%) 100 11/23/18 15:35 Constitutional: Yes: Well Nourished, No Distress Cardiovascular: Yes: WNL Respiratory: Yes: WNL ...Palpate: Yes: Other (Abd soft, mildly tender at lower abdomen at incisional site, no rebound, guarding or rigidity Negative murphys sign) Labs: CBC, BMP 11/26/18 14:12 11/27/18 14:45 INR, PTT INR 0.92 (0.83-1.09) 11/23/18 00:30 Imaging - Results Ultrasound: Report Reviewed Problem List - Problems (1) Gallstones Assessment/Plan: 28yo female h/o gallstones presents for labor induction s/p C section on asked to evaluate for gallstones seen on US imaging without evidence of biliary dilation. Mild lower abdominal discomfort which is improving post c section otherwise feeling well without abdominal pain. Mild alk phos elevation otherwise normal LFTs (none available today). -No urgent GI intervention indicated at this time -Pt should have LFTs repeated in 5-7 days to ensure normalization in alk phos and outpatient GI referral if needed -Recommend outpatient follow up with surgery to discuss elective cholecystectomy given h/o biliary colic symptoms Discussed with assessment manager attending Dr. Amador Code(s): K80.20 - CALCULUS OF GALLBLADDER W/O CHOLECYSTITIS W/O OBSTRUCTION
--- NOTE | 2018-11-28 14:40 | PN ---
Progress Note, Physician Chief Complaint: Cardiology FU No complaints. No dizziness, chest pain. History of Present Illness: 28 year old female with no significant pmhx admitted for induction of and s/p C section on 11/23/18 with no complications noted. Report as per chart HR went to 59 with short walk in the hallway. - Current Medication List Current Medications: Active Medications Acetaminophen (Tylenol -) 650 mg PO Q4H PRN PRN Reason: PAIN LEVEL 4 - 6 Last Admin: 11/28/18 08:02 Dose: 650 mg Diphenhydramine HCl (Benadryl Injection -) 25 mg IVPUSH Q4H PRN PRN Reason: Pruritis Last Admin: 11/23/18 23:36 Dose: 25 mg Enoxaparin Sodium (Lovenox -) 40 mg SQ DAILY [facility] Last Admin: 11/28/18 09:05 Dose: 40 mg Ibuprofen (Motrin -) 600 mg PO Q4H PRN PRN Reason: PAIN LEVEL 1-5 Last Admin: 11/28/18 08:03 Dose: 600 mg Ibuprofen (Caldolor Injection -) 800 mg IVPB Q6H PRN PRN Reason: FEVER Naloxone HCl (Narcan -) 0.4 mg IVPUSH PRN PRN PRN Reason: Sedation Ondansetron HCl (Zofran Injection) 4 mg IVPUSH Q4H PRN PRN Reason: NAUSEA Multivit/Folic Acid/Iron ( Vitamins (Sjr) -) 1 tab PO DAILY [facility] Last Admin: 11/28/18 09:05 Dose: 1 tab Simethicone (Mylicon -) 80 mg PO Q4H PRN PRN Reason: EXCESSIVE BLEEDING Last Admin: 11/27/18 22:58 Dose: 80 mg - Objective Vital Signs: Vital Signs Temperature 99 F 11/28/18 09:00 Pulse Rate 51 L 11/28/18 09:00 Respiratory Rate 18 11/28/18 09:00 Blood Pressure 131/86 11/28/18 09:00 O2 Sat by Pulse Oximetry (%) 100 11/23/18 15:35 Constitutional: Yes: Well Nourished, No Distress, Calm Eyes: Yes: Conjunctiva Clear, EOM Intact HENT: Yes: Atraumatic, Normocephalic Neck: Yes: Supple, Trachea Midline Cardiovascular: Yes: Regular Rate and Rhythm, S1, S2. No: JVD Respiratory: Yes: Regular, CTA Bilaterally Gastrointestinal: Yes: Normal Bowel Sounds, Soft Extremities: Yes: WNL Edema: No Labs: CBC, BMP 11/26/18 14:12 11/27/18 14:45 INR, PTT INR 0.92 (0.83-1.09) 11/23/18 00:30 Assessment/Plan 28 year old female with no significant pmhx admitted for induction of and s/p C section on 11/23/18 with no complications noted. Marked sinus bradycardia which has resolved. Echocardiogram showed normal biventricular function. No significant valvulopathy and pulm systolic pressure 38mmHg. Her HR improved-HR likely declined due to elevated vagal tone and has now recovered. No further testing is advised at this time. Will sign off.
--- NOTE | 2018-11-28 15:05 | PN ---
Progress Note, Physician Chief Complaint: patient denies pain, discomfort. patient agrees to follow up with GI doctor on discharge by calling for an appointment. denies chest pain or shortness of breath. History of Present Illness: sitting chair, dressed to go home. clear speech Patient is a 28 year old female with a past medical history of gallstones presents for labor induction s/p C section on 11/23/18. Patient was having episodes of bradycardia, asymptomatic and some chest discomfort that have all been resolved. She has been cleared by cardiology for discharge home. GI workup as an outpatient. Outpatient follow up with GI for repeat LFTs in 5-7 days, will add referral to d /c instructions. per gi note, will need possible elective cholecystectomy. Patient to be discharged home. - Current Medication List Current Medications: Active Medications Acetaminophen (Tylenol -) 650 mg PO Q4H PRN PRN Reason: PAIN LEVEL 4 - 6 Last Admin: 11/28/18 08:02 Dose: 650 mg Diphenhydramine HCl (Benadryl Injection -) 25 mg IVPUSH Q4H PRN PRN Reason: Pruritis Last Admin: 11/23/18 23:36 Dose: 25 mg Enoxaparin Sodium (Lovenox -) 40 mg SQ DAILY [facility] Last Admin: 11/28/18 09:05 Dose: 40 mg Ibuprofen (Motrin -) 600 mg PO Q4H PRN PRN Reason: PAIN LEVEL 1-5 Last Admin: 11/28/18 08:03 Dose: 600 mg Ibuprofen (Caldolor Injection -) 800 mg IVPB Q6H PRN PRN Reason: FEVER Naloxone HCl (Narcan -) 0.4 mg IVPUSH PRN PRN PRN Reason: Sedation Ondansetron HCl (Zofran Injection) 4 mg IVPUSH Q4H PRN PRN Reason: NAUSEA Multivit/Folic Acid/Iron ( Vitamins (Sjr) -) 1 tab PO DAILY [facility] Last Admin: 11/28/18 09:05 Dose: 1 tab Simethicone (Mylicon -) 80 mg PO Q4H PRN PRN Reason: EXCESSIVE BLEEDING Last Admin: 11/27/18 22:58 Dose: 80 mg - Objective Vital Signs: Vital Signs Temperature 99 F 11/28/18 09:00 Pulse Rate 51 L 11/28/18 09:00 Respiratory Rate 18 11/28/18 09:00 Blood Pressure 131/86 11/28/18 09:00 O2 Sat by Pulse Oximetry (%) 100 11/23/18 15:35 Constitutional: Yes: Well Nourished, No Distress Eyes: Yes: WNL HENT: Yes: Atraumatic Neck: Yes: Supple Cardiovascular: Yes: Regular Rate and Rhythm Respiratory: Yes: Regular, CTA Bilaterally Labs: CBC, BMP 11/26/18 14:12 11/27/18 14:45 INR, PTT INR 0.92 (0.83-1.09) 11/23/18 00:30 Problem List - Problems (1) Bradycardia with 31-40 beats per minute Code(s): R00.1 - BRADYCARDIA, UNSPECIFIED (2) delivery delivered Code(s): O82 - ENCOUNTER FOR DELIVERY WITHOUT INDICATION (3) Gallstones Code(s): K80.20 - CALCULUS OF GALLBLADDER W/O CHOLECYSTITIS W/O OBSTRUCTION (4) Post-dates Code(s): O48.0 - POST-TERM Impression/Plan Impression/Plan: discharge home with GI follow up. Visit type - Emergency Visit Emergency Visit: Yes ED Registration Date: 11/22/18 Care time: The patient presented to the Emergency Department on the above date and was hospitalized for further evaluation of their emergent condition. - New Patient This patient is new to me today: Yes Date on this admission: 11/28/18 - Critical Care Critical Care patient: No - Discharge Referral Referred to [facility] No
--- NOTE | 2018-11-29 09:32 | EKG ---
Test Reason : Blood Pressure : / mmHG Vent. Rate : 036 BPM Atrial Rate : 036 BPM P-R Int : 152 ms QRS Dur : 070 ms QT Int : 500 ms P-R-T Axes : 012 000 002 degrees QTc Int : 386 ms MARKED SINUS BRADYCARDIA WITH SINUS ARRHYTHMIA LOW VOLTAGE QRS CANNOT RULE OUT ANTERIOR INFARCT , AGE UNDETERMINED ABNORMAL ECG NO PREVIOUS ECGS AVAILABLE Confirmed by Candido Adams MD ([id number]) on 11/29/2018 9:32:05 AM Referred By: Confirmed By:Candido Adams MD
--- NOTE | 2018-11-30 16:38 | PATH ---
Surgical Pathology Report Patient Name: MAXI RODRIGUEZ Med. Rec. 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 TRIVESSEL UMBILICAL CORD. Electronically Signed Hoda Bales M.D. Gross Description The specimen is received fresh labeled placenta and is a 493 gram, 21 x19 x 1.8cm. placenta with attached membranes and umbilical cord. The attached membranes appear dull and insert marginally. The umbilical cord measures 40cm. in length and averages 1.3 cm. in diameter. The cord inserts centrally, 6 centimeter to the nearest margin. No true knots or strictures are identified. Cut surface of the umbilical cord reveals 3 vessels. Sectioning reveals red-brown, spongy parenchyma with few hemorrhagic foci. Trail Construction Worker sections are submitted in three cassettes as follows: 1- membrane rolls and umbilical cord; 2-3- full thickness sections of placenta.
== END 2018-11-28 15:23 | disposition home or self-care (01) | DRG 788 ==
LOC: JLDR 20:43 → J3W 11-23 18:00
PROVIDERS: ADMIT Obstetrics & Gynecology; ATTEND Internal Medicine
PROC: 10D00Z1 Extraction of Products of Conception, Low, Open Approach (ICD-10-PCS; principal; 2018-11-23)
PROC: 3E0P7VZ Introduction of Hormone into Female Reproductive, Via Natural or Artificial Opening (ICD-10-PCS; 2018-11-23)
PROC: 10907ZC Drainage of Amniotic Fluid, Therapeutic from Products of Conception, Via Natural or Artificial Opening (ICD-10-PCS; 2018-11-23)
DX: O48.0 Post-term pregnancy (principal); O76 Abnormality in fetal heart rate and rhythm complicating labor and delivery; Z37.0 Single live birth; Z3A.41 41 weeks gestation of pregnancy; O90.89 Other complications of the puerperium, not elsewhere classified; R00.1 Bradycardia, unspecified; R07.89 Other chest pain; K80.20 Calculus of gallbladder without cholecystitis without obstruction
CPT/HCPCS: 36415; 36600; 76705-TC; 80048; 80053; 82550; 82803; 83735; 84439; 84443; 84484; 85025; 85027; 85610; 85730; 86593; 86850; 86900; 86901; 88307-TC; 90715; 93005; 93010; 93306-TC